=== PATIENT | male | born 1955 | race African-American/Black ===

== ENCOUNTER 2017-01-12 06:39 | Day surgery (SDC) | payer OTHER ==
[~2017-01-12 06:39] MED LIST: CELEBREX200 MG PO; CYANOCOBALAM1000 MCG PO; NEURONTIN300 MG PO; NORVASC5 MG PO; PERCOCET 10/1 TABLET PO; VITAMIN D31000 UNIT PO
== END 2017-01-12 09:10 | disposition home or self-care (01) ==
LOC: PAIN 06:39 → SDC 09:00 → PAIN 09:00
DX: M47.816 Spondylosis without myelopathy or radiculopathy, lumbar region (principal); M51.17 Intervertebral disc disorders with radiculopathy, lumbosacral region; M54.5 Low back pain; G89.29 Other chronic pain; F17.200 Nicotine dependence, unspecified, uncomplicated; M19.012 Primary osteoarthritis, left shoulder; F14.21 Cocaine dependence, in remission; Z88.0 Allergy status to penicillin; Z79.891 Long term (current) use of opiate analgesic
CPT/HCPCS: 93005; J1030; J2250; J3010; S0020

== ENCOUNTER 2017-02-16 06:40 | Day surgery (SDC) | payer OTHER ==
[~2017-02-16] VITALS: Ht 157.5 cm; Wt 68.0 kg
[~2017-02-16 06:40] MED LIST changes: +CYANOCOBAL1000 MCG/2 IM; +NEURONTIN400 MG PO
== END 2017-02-16 09:30 | disposition home or self-care (01) ==
LOC: PAIN 06:40 → SDC 09:15 → PAIN 09:30
DX: M53.3 Sacrococcygeal disorders, not elsewhere classified (principal); M46.1 Sacroiliitis, not elsewhere classified; M47.816 Spondylosis without myelopathy or radiculopathy, lumbar region; G89.29 Other chronic pain; M51.27 Other intervertebral disc displacement, lumbosacral region; F10.21 Alcohol dependence, in remission; E66.3 Overweight; Z68.27 Body mass index [BMI] 27.0-27.9, adult; Z79.891 Long term (current) use of opiate analgesic; F17.200 Nicotine dependence, unspecified, uncomplicated; Z88.0 Allergy status to penicillin
CPT/HCPCS: J1030; J2250; J3010; S0020

== ENCOUNTER 2017-05-25 09:01 | Day surgery (SDC) | payer OTHER ==
[~2017-05-25] VITALS: Ht 162.6 cm; Wt 70.2 kg
[~2017-05-25 09:01] MED LIST changes: +ZOCOR20 MG PO
== END 2017-05-25 10:30 | disposition home or self-care (01) ==
LOC: PAIN 09:01
PROC: 3E0U33Z Introduction of Anti-inflammatory into Joints, Percutaneous Approach (ICD-10-PCS; principal; 2017-05-25)
PROC: 3E0U3BZ Introduction of Anesthetic Agent into Joints, Percutaneous Approach (ICD-10-PCS; principal; 2017-05-25)
DX: M53.3 Sacrococcygeal disorders, not elsewhere classified (principal); M46.1 Sacroiliitis, not elsewhere classified; G89.29 Other chronic pain; M19.012 Primary osteoarthritis, left shoulder; M47.816 Spondylosis without myelopathy or radiculopathy, lumbar region; M54.5 Low back pain; I10 Essential (primary) hypertension; I44.0 Atrioventricular block, first degree; F17.200 Nicotine dependence, unspecified, uncomplicated; Z79.891 Long term (current) use of opiate analgesic; Z88.0 Allergy status to penicillin
CPT/HCPCS: J1030; J2250; J3010; S0020